=== PATIENT | male | born 1945 | race Caucasian/White ===

== ENCOUNTER 2023-01-16 16:55 | Inpatient (IN) | payer MEDICARE, OTHER ==
[2023-01-16 20:49] VITALS: BMI 24.7
[2023-01-16] MEDS ORDERED: Bacitracin Zinc Ointment 30 gm TUBE ONE (20:50)
[2023-01-16] MEDS ORDERED: Bupivacaine PF 0.5% 30 ML VIAL ONE (20:50)
[2023-01-16] MEDS ORDERED: Vancomycin 1 GM VIAL ONE (20:50)
[2023-01-16] MEDS ORDERED: fentaNYL PF 100 MCG/2 ML SYRINGE ONE (20:54)
[2023-01-16] MEDS ORDERED: Meperidine HCl/PF 25 MG/ML VIAL IM PRN (21:06)
[2023-01-16] MEDS ORDERED: TETANUS, DIPHTHERIA TOX,ADULT (TDVAX) 0.5 ML VIAL IM ONE (21:09)
[2023-01-16] MEDS ORDERED: Promethazine HCl 25 MG/ML VIAL IM PRN (21:09)
[2023-01-16] MEDS ORDERED: Bisacodyl 10 MG SUPP PR PRN (21:09)
[2023-01-16] MEDS ORDERED: Ondansetron PF 4 MG/2 ML Vial IVP PRN (21:09)
[2023-01-16] MEDS ORDERED: Fentanyl 100 MCG/2 ML VIAL SLOW IVP PRN (21:09)
[2023-01-16] MEDS ORDERED: Acetaminophen 325 MG TAB PO PRN (21:09)
[2023-01-16] MEDS ORDERED: Milk Of Magnesia 30 ML UDCUP PO PRN (21:09)
[2023-01-16] MEDS ORDERED: PHARMACY TO DOSE FS PRN (21:15)
[2023-01-16] MEDS ORDERED: PHENYLEPHRINE-NS 100 MCG/ML 10 ML SYRINGE ONE (21:26)
[2023-01-16] MEDS ORDERED: NEOSTIGMINE 3 MG/3 ML SYR 3 MG/3 ML SYRINGE ONE (21:26)
[2023-01-16] MEDS ORDERED: Rocuronium Bromide 10 MG/ML (10ML VIAL) ONE (21:26)
[2023-01-16] MEDS ORDERED: PROPOFOL 200 MG/20 ML VIAL ONE (21:26)
[2023-01-16] MEDS ORDERED: Ondansetron PF 4 MG/2 ML Vial ONE (21:26)
[2023-01-16] MEDS ORDERED: ePHEDrine Sulfate 50 MG/10 ML VIAL ONE (21:26)
[2023-01-16] MEDS ORDERED: Lidocaine 1% PF 5 ML VIAL ONE (21:26)
[2023-01-16] MEDS ORDERED: Glycopyrrolate 0.2 MG/ML 5 ML SYRINGE ONE (21:26)
[2023-01-16] MEDS ORDERED: CEFAZOLIN 2 GM in Sodium Chloride 0.9% 100 ML IVPB SCH (22:00)
[2023-01-16] MEDS ORDERED: Gentamicin Sulfate 80 MG in Premix Bag 1 BAG IVPB SCH (22:00)
[2023-01-16] MEDS ORDERED: Gentamicin 80 MG/2 ML VIAL IM SCH (22:00)
[2023-01-16] MEDS ORDERED: Mineral Oil Sterile 10 ML VIAL ONE (23:30)
[2023-01-17] MEDS ORDERED: CEFAZOLIN 1 GM VIAL ONE (01:26)
[2023-01-17] MEDS ORDERED: Ondansetron HCl/PF 4 MG/2 ML Vial IVP PRN (02:04)
[2023-01-17] MEDS ORDERED: Promethazine HCl 25 MG/ML VIAL IM PRN (02:04)
[2023-01-17] MEDS ORDERED: fentaNYL 50 mcg/mL 1 mL Vial ONE (02:22)
[2023-01-17] MEDS: Gentamicin Sulfate 80 MG in Premix Bag 1 BAG IVPB SCH ×3 (03:55→20:25)
[2023-01-17] MEDS: Morphine 4 MG/ML VIAL SLOW IVP PRN ×2 (03:56→05:59)
[2023-01-17 05:57] LABS: ALT (SGPT) 10 U/L (8-55); AST (SGOT) 14 U/L (5-34); Albumin 3.5 g/dL (3.4-4.8); Alkaline Phosphatase 51 U/L (40-110); Anion Gap 9 mmol/L (10-20); BUN (Urea Nitrogen) 11 mg/dL (8.4-25.7); Bilirubin, Total 0.5 mg/dL (0.2-1.2); Calc. Creatinine Clearance 95 mL/min (70-130); Calcium 8.2 mg/dL (7.8-10.44); Carbon Dioxide 25 mmol/L (23-31); Chloride 105 mmol/L (98-107); Estimated GFR 94; Glucose 109 mg/dL (83-110); Potassium 3.8 mmol/L (3.5-5.1); Protein, Total 5.5 g/dL (5.8-8.1); Sodium 135 mmol/L (136-145)
[2023-01-17] MEDS: HYDROcodone/Acetaminophen 5/325 mg Tablet PO PRN ×3 (07:59→17:02)
[2023-01-17] MEDS: Aspirin 81 mg Enteric Coated Tablet PO SCH ×2 (08:00→20:25)
[2023-01-17] MEDS: traMADol HCl 50 MG TAB PO PRN ×2 (10:23→20:25)
[2023-01-17] MEDS: CEFAZOLIN 2 GM in Sodium Chloride 0.9% 100 ML IVPB SCH ×2 (10:24→18:23)
[2023-01-17] MEDS ORDERED: hydrALAZINE 20 MG/ML VIAL SLOW IVP PRN (10:36)
[2023-01-17] MEDS ORDERED: Lorazepam 2 MG/ML VIAL IM PRN (10:49)
[2023-01-17] MEDS ORDERED: Ondansetron ODT 4 MG TAB PO PRN (10:49)
[2023-01-17] MEDS ORDERED: Lorazepam 1 MG TAB PO PRN (10:49)
[2023-01-17] MEDS ORDERED: Thiamine HCl 200 MG/2 ML VIAL SLOW IVP SCH (11:00)
[2023-01-17] MEDS ORDERED: Electrolyte Replacement Protocol 1 EACH FS SCH (11:00)
[2023-01-17 11:36] LABS: Magnesium 1.8 mg/dL (1.6-2.6); Phosphorus 3.7 mg/dL (2.3-4.7)
[2023-01-17] MEDS ORDERED: Multivit, Therapeutic 1 TAB PO SCH (11:45)
[2023-01-17] MEDS ORDERED: Thiamine 100 MG TAB PO SCH (11:45)
[2023-01-17] MEDS ORDERED: Folic Acid 1 MG TAB PO SCH (11:45)
[2023-01-17] MEDS ORDERED: Magnesium 2 GM/50 ML(in water) 2 GM in Premix Bag 1 BAG IVPB SCH (13:00)
[2023-01-17 13:33] LABS: Syphilis Antibody Nonreactive (Nonreactive); Syphilis Antibody Index 0.12 S/CO (<1.00 Non-Reactive)
[2023-01-18] MEDS: HYDROcodone/Acetaminophen 5/325 mg Tablet PO PRN ×2 (01:23→07:46)
[2023-01-18] MEDS: CEFAZOLIN 2 GM in Sodium Chloride 0.9% 100 ML IVPB SCH (01:23)
[2023-01-18] MEDS: Gentamicin Sulfate 80 MG in Premix Bag 1 BAG IVPB SCH (04:44)
[2023-01-18 05:59] LABS: #Eosinphils 0.1 thou/uL (0.0-0.7); #Monocytes 0.8 thou/uL (0.11-0.59); #Neutrophils 3.9 thou/uL (1.40-6.50); %Basophils 0.5 % (0.0-1.0); %Eosinophils 1.9 % (0.0-10.0); %Lymphocytes 24.4 % (21.0-51.0); %Monocytes 12.7 % (0.0-10.0); %Neutrophils 60.2 % (42.0-75.0); Hemoglobin 10.8 g/dL (14.0-18.0); Mean Corpuscular HGB CONC 33.2 g/dL (32.0-36.0); Mean Corpuscular Hemoglobin 32.1 pg (27.0-31.0); Mean Corpuscular Volume 96.7 fl (78.0-98.0); Mean Platelet Volume 8.5 fL (7.4-10.4); Platelet Count 180 10x3/uL (130-400); RBC Distribution Width 13.1 % (11.5-14.5); Red Blood Cell (RBC) Count 3.36 mill/uL (4.70-6.10); White Blood Cell (WBC) Count 6.4 10x3/uL (4.8-10.8)
[2023-01-18 06:28] LABS: ALT (SGPT) 7 U/L (8-55); AST (SGOT) 12 U/L (5-34); Albumin 3.3 g/dL (3.4-4.8); Alkaline Phosphatase 55 U/L (40-110); Anion Gap 12 mmol/L (10-20); BUN (Urea Nitrogen) 10 mg/dL (8.4-25.7); Bilirubin, Total 0.4 mg/dL (0.2-1.2); Calc. Creatinine Clearance 93 mL/min (70-130); Calcium 8.1 mg/dL (7.8-10.44); Carbon Dioxide 24 mmol/L (23-31); Chloride 105 mmol/L (98-107); Estimated GFR 94; Glucose 86 mg/dL (83-110); Potassium 4.1 mmol/L (3.5-5.1); Protein, Total 5.3 g/dL (5.8-8.1); Sodium 137 mmol/L (136-145)
[2023-01-18] MEDS: Aspirin 81 mg Enteric Coated Tablet PO SCH (07:45)
[2023-01-18] MEDS ORDERED: Folic Acid 1 MG TAB PO SCH (09:00)
[2023-01-18] MEDS ORDERED: Multivit, Therapeutic 1 TAB PO SCH (09:00)
[2023-01-18 09:01] VITALS: BP 171/77; TEMP 98
[2023-01-18] MEDS ORDERED: Lorazepam 1 MG TAB PO PRN (10:49)
[2023-01-19] MEDS ORDERED: Lorazepam 1 MG TAB PO PRN (10:49)
[2023-01-20] MEDS ORDERED: Thiamine 100 MG TAB PO SCH (09:00)
[2023-01-20] MEDS ORDERED: Lorazepam 0.5 MG TAB PO PRN (10:49)
== END 2023-01-18 09:55 | disposition home or self-care (01) | DRG 514 ==
LOC: SURG A 20:11
PROVIDERS: ADMIT Orthopaedic Surgery Hand Surgery; ATTEND Orthopaedic Surgery Hand Surgery
PROC: 0HRGX74 Replacement of Left Hand Skin with Autologous Tissue Substitute, Partial Thickness, External Approach (ICD-10-PCS; principal; 2023-01-17)
PROC: 0PSV04Z Reposition Left Finger Phalanx with Internal Fixation Device, Open Approach (ICD-10-PCS; 2023-01-17)
PROC: 0PSV04Z Reposition Left Finger Phalanx with Internal Fixation Device, Open Approach (ICD-10-PCS; 2023-01-17)
PROC: 0HDQXZZ Extraction of Finger Nail, External Approach (ICD-10-PCS; 2023-01-17)
PROC: 0PBV0ZZ Excision of Left Finger Phalanx, Open Approach (ICD-10-PCS; 2023-01-17)
DX: S62.635B Displaced fracture of distal phalanx of left ring finger, initial encounter for open fracture (principal); I10 Essential (primary) hypertension; F10.10 Alcohol abuse, uncomplicated; T14.8XXA Other injury of unspecified body region, initial encounter; X58.XXXA Exposure to other specified factors, initial encounter; S62.633B Displaced fracture of distal phalanx of left middle finger, initial encounter for open fracture; Z98.890 Other specified postprocedural states; Z79.82 Long term (current) use of aspirin; Y92.89 Other specified places as the place of occurrence of the external cause; Z79.899 Other long term (current) drug therapy
CPT/HCPCS: 36415; 80053; 83735; 84100; 85025; 86780; C1713; J0690; J1580; J2270; J2405; J2704; J3010; J3370; J3475; J3490; S0020